=== PATIENT | male | born 1975 | race Caucasian/White ===

== ENCOUNTER 2020-12-12 08:54 | Emergency (ER) | payer SELFPAY ==
--- NOTE | 2020-12-12 10:48 | RAD REPORT ---
EXAM DESCRIPTION: CT - Thoracic Spine W/o Cont - 12/12/2020 10:02 am CLINICAL HISTORY: Back pain, fall COMPARISON: None. TECHNIQUE: Axial 3 mm thick images of the thoracic spine were obtained with sagittal and coronal rec onstruction images generated and reviewed. All CT scans are performed using dose optimization technique as appropriate and may include automated exposure control or mA/KV adjustment according to patient size. FINDINGS: Mild concavity to the superior endplate of T4 and T5 with overall body height preserved. T here is slight wedging of the T6 body with posterior wall height preserved. Approximately 20% wedging of the T9 body is seen. No associated fracture lines or acute abnormality seen. These are believed b e all chronic changes. No abnormal disc space narrowing or endplate spurring changes seen. No paraspinal mass or hematoma. Central canal detail is inherently limited on CT imaging. No gross evidence for disc herniation. IMPRESSION: Patient shows multiple vertebrae that show wedging or loss of height. There are no assoc iated acute fracture lines or pathologic bone changes. The thoracic vertebral changes are suspected to be chronic but could potentially be sources for pain. Follow-up outpatient MR imaging could be performed to exclude any active marrow process. Central canal detail is inherently limited. No gross abnormality seen.
--- NOTE | 2020-12-12 11:19 | ER ---
Nurse's Notes [facility] Name: Raul Baldwin Age: 45 yrs Sex: Male : 1975 Arrival Date: 12/12/2020 Time: 09:01 Bed 18 Private MD: Diagnosis: Wedge compression fracture of unspecified thoracic vertebra Presentation: 12/12 09:05 Chief complaint: Patient states: upper and middle back pain for 3-4 days. Reports rb3 falling a year ago. Coronavirus screen: At this time, the client does not indicate any symptoms associated with coronavirus-19. Ebola Screen: Patient denies travel to an Ebola-affected area in the 21 days before illness onset. Initial Sepsis Screen: Does the patient meet any 2 criteria? No. Patient's initial sepsis screen is negative. Does the patient have a suspected source of infection? No. Patient's initial sepsis screen is negative. Risk Assessment: Do you want to hurt yourself or someone else? Patient reports no desire to harm self or others. Onset of symptoms was December 08, 2020. 09:05 Method Of Arrival: Ambulatory rb3 09:05 Acuity: DAVIDA 3 rb3 Triage Assessment: 09:05 General: Appears in no apparent distress. Behavior is calm, cooperative. Pain: rb3 Complains of pain in upper and middle back Pain currently is 8 out of 10 on a pain scale. Quality of pain is described as tingling. Neuro: Level of Consciousness is awake, alert, obeys commands, Oriented to person, place, time, situation. Neuro: Reports Tingling in his feet and back. Cardiovascular: Patient's skin is warm and dry. Respiratory: Airway is patent Respiratory effort is even, unlabored, Respiratory pattern is regular, symmetrical. Respiratory: Reports cough that is reports a smoker's cough. GI: No signs and/or symptoms were reported involving the gastrointestinal system. : No signs and/or symptoms were reported regarding the genitourinary system. Musculoskeletal: Range of motion: intact in all extremities. Historical: - Allergies: 09:05 No Known Allergies; rb3 - Home Meds: 09:05 None [Active]; rb3 - PMHx: 09:05 None; rb3 - PSHx: 09:05 None; rb3 - Immunization history:: Adult Immunizations unknown. - Social history:: Smoking status: Patient reports the use of cigarette tobacco products, smokes one pack cigarettes per day. Screenin:05 Abuse screen: Denies threats or abuse. Nutritional screening: No deficits noted. rb3 Tuberculosis screening: No symptoms or risk factors identified. Fall Risk None identified. Assessment: 09:05 General: See triage assessment. rb3 10:06 Reassessment: Pt. in radiology. rb3 10:50 Reassessment: Patient appears in no apparent distress at this time. Patient and/or rb3 family updated on plan of care and expected duration. Pain level reassessed. Patient is alert, oriented x 3, equal unlabored respirations, skin warm/dry/pink. 10:56 Reassessment: Pt. went to x-ray. rb3 11:39 Reassessment: Patient appears in no apparent distress at this time. Patient and/or iw family updated on plan of care and expected duration. Pain level reassessed. Patient is alert, oriented x 3, equal unlabored respirations, skin warm/dry/pink. Vital Signs: 09:05 BP 116 / 72; Pulse 87; Resp 17; Temp 98.7; Pulse Ox 96% ; Weight 56.7 kg; Height 5 ft. rb3 5 in. (165.10 cm); Pain 8/10; 10:06 rb3 10:30 BP 121 / 74; Pulse 82; Resp 18; Pulse Ox 98% ; rb3 10:54 rb3 09:05 Body Mass Index 20.80 (56.70 kg, 165.10 cm) rb3 10:06 pt. is in radiology rb3 10:54 Pt. went to x-ray rb3 ED Course: 09:01 Patient arrived in ED. am2 09:05 Noelle Nguyen, RN is Primary Nurse. rb3 09:05 Sudeep Nesbitt PA is PHCP. jr8 09:05 Barber Olsen MD is Attending Physician. jr8 09:05 Arm band placed on right wrist. rb3 09:05 Patient has correct armband on for positive identification. Bed in low position. Call rb3 light in reach. Side rails up X 1. Pulse ox on. NIBP on. 09:15 Triage completed. rb3 10:02 CT Thoracic Spine Wo Cont In Process Unspecified. EDMS 10:57 XRAY Chest Pa And Lat (2 Views) In Process Unspecified. EDMS 11:18 Yohannes Cuba MD is Referral Physician. jr8 11:39 No provider procedures requiring assistance completed. Patient did not have IV access iw during this emergency room visit. Administered Medications: No medications were administered Outcome: 11:18 Discharge ordered by . jr8 11:39 Discharged to home ambulatory. iw 11:39 Condition: good 11:39 Discharge instructions given to patient, Instructed on discharge instructions, follow up and referral plans. medication usage, Demonstrated understanding of instructions, follow-up care, medications, Prescriptions given X 3. 11:39 Patient left the ED. iw Signatures: Dispatcher [employer] EDMS Dasia Cota, RN RN iw Sudeep Nesbitt PA PA jr8 Aaliyah Saleh am2 Noelle Nguyen, RN RN rb3
--- NOTE | 2020-12-12 11:19 | EDPHYS ---
Physician Documentation [facility] Name: Raul Baldwin Age: 45 yrs Sex: Male : 1975 Arrival Date: 12/12/2020 Time: 09:01 Bed 18 Private MD: ED Physician Barber Olsen HPI: 12/12 10:10 This 45 yrs old Male presents to ER via Ambulatory with complaints of Back jr8 Pain. 10:10 Onset: The symptoms/episode began/occurred acutely, 5 day(s) ago. Associated signs and jr8 symptoms: Pertinent positives: tingling. Modifying factors: The patient symptoms are alleviated by nothing, the patient symptoms are aggravated by movement. Severity of symptoms: At their worst the symptoms were moderate, in the emergency department the symptoms are unchanged. The patient has not experienced similar symptoms in the past. The patient has not recently seen a physician. Patient stated that he injured his upper back about a year ago but had been doing fine since then. About 5 days ago started to have upper back pain with movement that is now constant and is also having lower feet tingling bilaterally . Historical: - Allergies: 09:05 No Known Allergies; rb3 - Home Meds: 09:05 None [Active]; rb3 - PMHx: 09:05 None; rb3 - PSHx: 09:05 None; rb3 - Immunization history:: Adult Immunizations unknown. - Social history:: Smoking status: Patient reports the use of cigarette tobacco products, smokes one pack cigarettes per day. ROS: 10:10 Cardiovascular: Negative for chest pain, palpitations, and edema, Respiratory: Negative jr8 for shortness of breath, cough, wheezing, and pleuritic chest pain, Abdomen/GI: Negative for abdominal pain, nausea, vomiting, diarrhea, and constipation, MS/Extremity: Negative for injury and deformity, Skin: Negative for injury, rash, and discoloration. 10:10 Back: Positive for pain at rest, pain with movement, radiated pain. 10:10 Neuro: Positive for tingling, of the right foot and left foot. 10:10 All other systems are negative. Exam: 10:10 Constitutional: This is a well developed, well nourished patient who is awake, alert, jr8 and in no acute distress. Chest/axilla: Normal chest wall appearance and motion. Nontender with no deformity. No lesions are appreciated. Cardiovascular: Regular rate and rhythm with a normal S1 and S2. No gallops, murmurs, or rubs. Normal PMI, no JVD. No pulse deficits. Respiratory: Lungs have equal breath sounds bilaterally, clear to auscultation and percussion. No rales, rhonchi or wheezes noted. No increased work of breathing, no retractions or nasal flaring. Abdomen/GI: Soft, non-tender, with normal bowel sounds. No distension or tympany. No guarding or rebound. No evidence of tenderness throughout. Skin: Warm, dry with normal turgor. Normal color with no rashes, no lesions, and no evidence of cellulitis. MS/ Extremity: Pulses equal, no cyanosis. Neurovascular intact. Full, normal range of motion. Neuro: Awake and alert, GCS 15, oriented to person, place, time, and situation. Cranial nerves II-XII grossly intact. Motor strength 5/5 in all extremities. Sensory grossly intact. Cerebellar exam normal. Normal gait. 10:10 Neck: Trachea midline, no thyromegaly or masses palpated, and no cervical lymphadenopathy. Supple, full range of motion without nuchal rigidity, or vertebral point tenderness. No Meningismus. 10:10 Back: ROM is painful, with flexion, with extension, normal spinal alignment noted, CVA tenderness, is absent, vertebral tenderness, is appreciated at T3, muscle spasm, is appreciated in the left scapular area and right scapular area. Vital Signs: 09:05 BP 116 / 72; Pulse 87; Resp 17; Temp 98.7; Pulse Ox 96% ; Weight 56.7 kg; Height 5 ft. rb3 5 in. (165.10 cm); Pain 8/10; 10:06 rb3 10:30 BP 121 / 74; Pulse 82; Resp 18; Pulse Ox 98% ; rb3 10:54 rb3 09:05 Body Mass Index 20.80 (56.70 kg, 165.10 cm) rb3 10:06 pt. is in radiology rb3 10:54 Pt. went to x-ray rb3 MDM: 09:05 Patient medically screened. [facility] 11:15 Data reviewed: vital signs, nurses notes, radiologic studies, CT scan, plain films. [facility] Data interpreted: Pulse oximetry: on room air is 96 %. Interpretation: normal. Counseling: I had a detailed discussion with the patient and/or guardian regarding: the historical points, exam findings, and any diagnostic results supporting the discharge/admit diagnosis, radiology results, the need for outpatient follow up, a neurosurgeon, to return to the emergency department if symptoms worsen or persist or if there are any questions or concerns that arise at home. ED course: No emergent findings on CT that would necessitate transfer or emergent MRI at this time. Neurologically patient is stable and without weakness or deficit. Will have him f/u with neurosurgery. Close return precautions given . 12/12 09:41 Order name: CT Thoracic Spine Wo Cont; Complete Time: 10:54 jr8 12/12 09:41 Order name: XRAY Chest Pa And Lat (2 Views) jr8 Administered Medications: No medications were administered Disposition: 12/13 07:13 Co-signature as Attending Physician, Barber Olsen MD I agree with the assessment and kdr plan of care. Disposition: 12/12/20 11:18 Discharged to Home. Impression: Wedge compression fracture of unspecified thoracic vertebra. - Condition is Stable. - Discharge Instructions: Vertebral Fracture. - Prescriptions for meloxicam 15 mg Oral tablet - take 1 tablet by ORAL route once daily As needed; 20 tablet. Robaxin 500 mg Oral Tablet - take 2 tablet by ORAL route every 6 hours As needed; 40 tablet. Medrol (Radames) 4 mg Oral Tablets, Dose Pack - take 1 tablet by ORAL route as directed - follow package instructions; 1 packet. - Medication Reconciliation Form, Thank You Letter, Antibiotic Education, Prescription Opioid Use, Work release form form. - Follow up: Yohannes Cuba MD; When: 5 - 6 days; Reason: Recheck today's complaints, Continuance of care, Re-evaluation by your physician. - Problem is new. - Symptoms are unchanged. Signatures: Dispatcher [employer] EDMS Barber Olsen MD MD [facility] Dasia Cota RN RN iw Sudeep Nesbitt PA PA jr8 Noelle Nguyen, RN RN rb3 Corrections: (The following items were deleted from the chart) 12/12 11:39 11:18 12/12/2020 11:18 Discharged to Home. Impression: Wedge compression fracture of iw unspecified thoracic vertebra. Condition is Stable. Forms are Medication Reconciliation Form, Thank You Letter, Antibiotic Education, Prescription Opioid Use. Follow up: Yohannes Cuba; When: 5 - 6 days; Reason: Recheck today's complaints, Continuance of care, Re-evaluation by your physician. Problem is new. Symptoms are unchanged. jr8
--- NOTE | 2020-12-12 11:51 | RAD REPORT ---
EXAM DESCRIPTION: RAD - Chest Pa And Lat (2 Views) - 12/12/2020 11:01 am CLINICAL HISTORY: PAIN COMPARISON: None TECHNIQUE: Frontal and lateral views of the chest were obtained. FINDINGS: The lungs are fibrotic with flattened diaphragm and increased retrosternal space. No failu re, infiltrate or mass identified. Heart size is normal and central vasculature is within normal li mits. No pleural effusion or pneumothorax seen. Bones are osteopenic. Several vertebrae show a slig ht wedge configuration. No lytic or blastic component. No aortic abnormality. IMPRESSION: COPD pattern with no acute cardiopulmonary finding. Osteopenic changes in the spine with several vertebrae showing a slight wedge configuration. No lytic or blastic changes are present. If thoracic or mid back pain symptoms persist, follow-up out patient MRI imaging could be performed to assure no active bone process.
[2020-12-12 11:56] VITALS: BP 116/72; TEMP 98.7; O2SAT 96
== END 2020-12-12 11:39 | disposition home or self-care (01) ==
LOC: ER 08:54
DX: S22.000A Wedge compression fracture of unspecified thoracic vertebra, initial encounter for closed fracture (principal); F17.210 Nicotine dependence, cigarettes, uncomplicated
CPT/HCPCS: 71046; 72128

== ENCOUNTER 2023-01-06 13:57 | Emergency (ER) | payer SELFPAY ==
--- OUTSIDE RECORDS SUMMARY | 2023-01-06 14:00 | XMS REPORT | Continuity of Care Document ---
:1975 Author Organization [facility] t Address [address] [facility] [address] [place] [id number] Care Team Providers Name Role Phone Unavailable Unavailable Unavailable Problems This patient has no known problems. Allergies, Adverse Reactions, Alerts This patient has no known allergies or adverse reactions. Medications This patient has no known medications. Procedures This patient has no known procedures. Encounters Start End Encounter Admission Attending Care Care Encounter Source Date/Time Date/Time Type Type Clinicians Facility Department ID 2022-04-09 2022-04-09 Outpatient [facility] [id number] 09:55:51 09:55:51 [id number] Results This patient has no known results.
--- NOTE | 2023-01-06 15:01 | RAD REPORT ---
EXAM DESCRIPTION: RAD - Chest Single View - 01/06/2023 2:51 pm CLINICAL HISTORY: COUGH COMPARISON: Chest Pa And Lat (2 Views) dated 12/12/2020 FINDINGS: Lines: None. Lungs: No evidence of edema or pneumonia. Pleural: No significant pleural effusions or pneumothorax. Cardiac: The heart size is within normal limits. Mediastinum: Within normal limits. Bones: No acute fractures. Other: None IMPRESSION: No acute cardiopulmonary disease.
[2023-01-06] MEDS ORDERED: NA CHLORIDE 0.9% 1,000 ML ONE (15:07)
[2023-01-06] MEDS ORDERED: NA CHLORIDE 0.9% 2,000 ML ONE (15:34)
[2023-01-06 15:41] LABS: Absolute Lymphocytes (CBC) 1.7 K/uL (0.7-4.9); Hematocrit 41.9 % (39.6-49.0); MCV 93.3 fL (80-100); MPV 7.2 fL (7.6-11.3); RBC Red Blood Cell Count 4.49 M/uL (4.33-5.43)
[2023-01-06 15:42] LABS: ALT/SGPT 32 U/L (16-61); AST/SGOT 17 U/L (15-37); Albumin 3.9 g/dL (3.4-5.0); Alkaline Phosphatase 50 U/L (45-117); BUN Blood Urea Nitrogen 18 mg/dL (7-18); Bicarbonate 29 mEq/L (21-32); Bilirubin Direct 0.1 mg/dL (0-0.2); Bilirubin Indirect, Calculated 0.2 mg/dL (0.2-0.8); Bilirubin Total 0.3 mg/dL (0.2-1.0); Creatine Phosphokinase 158 U/L (39-308); Glomerular Filtration Rate 111 ml/min (=/>90); Glucose Level 90 mg/dL (74-106); Lipase 70 U/L (13-75); Magnesium 2.3 mg/dL (1.6-2.4); NT PRO-BNP 92 pg/mL (<125); Potassium 3.8 mEq/L (3.5-5.1); Protein, Total 7.2 g/dL (6.4-8.2); Sodium Level 139 mEq/L (136-145)
[2023-01-06 15:43] LABS: Troponin High Sensitivity < 3.0 pg/mL (<58.9)
[2023-01-06 15:53] LABS: Specific Gravity 1.022 (1.005-1.030); Urine Bilirubin NEGATIVE (Negative); Urine Blood Negative (Negative); Urine Clarity Clear (Clear); Urine Color Light-Yellow (Yellow); Urine Glucose NEGATIVE (Negative); Urine Protein NEGATIVE (Negative); Urine Urobilinogen Normal (Normal)
--- NOTE | 2023-01-06 15:54 | ER ---
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 Coronavirus screen: Vaccine status: Patient reports being unvaccinated. Client denies travel out of the [place] in the last 14 days. At this time, the client does not indicate any symptoms associated with coronavirus-19. Ebola Screen: Patient denies travel to an Ebola-affected area in the 21 days before illness onset. Initial Sepsis Screen: Does the patient meet any 2 criteria? No. Patient's initial sepsis screen is negative. Does the patient have a suspected source of infection? No. Patient's initial sepsis screen is negative. Risk Assessment: Do you want to hurt yourself or someone else? Patient reports no desire to harm self or others. Onset of symptoms was December 24, 2022. 14:08 Method Of Arrival: Ambulatory ll1 14:08 Acuity: DAVIDA 3 ll1 Triage Assessment: 14:09 General: Appears uncomfortable, Behavior is calm, cooperative, appropriate for age. ll1 General: Reports feeling ill for fatigue for dehydration. Pain: Complains of pain in body Quality of pain is described as crampy. Neuro: Reports dizziness, weakness. GI: Reports cramping. 14:09 Neuro: Reports headache. ll1 Historical: - Allergies: 14:06 No Known Allergies; ll1 - PMHx: 14:06 T4-T5 FX; ll1 - PSHx: 14:06 None; ll1 - Immunization history:: Client reports having NOT received the Covid vaccine. - Social history:: Smoking status: Patient reports the use of cigarette tobacco products, smokes one pack cigarettes per day. Screenin:56 [facility] ED Fall Risk Assessment (Adult) History of falling in the last 3 months, nj1 including since admission No falls in past 3 months (0 pts) Confusion or Disorientation No (0 pts) Intoxicated or Sedated No (0 pts) Impaired Gait No (0 pts) Mobility Assist Device Used No (0 pt) Altered Elimination No (0 pt) Score/Fall Risk Level 0 - 2 = Low Risk Oriented to surroundings, Maintained a safe environment, Hourly rounding (assess needs \T\ fall precautionary measures) done. Abuse screen: Denies threats or abuse. Denies injuries from another. Nutritional screening: No deficits noted. Tuberculosis screening: No symptoms or risk factors identified. Assessment: 14:40 General: Appears in no apparent distress. comfortable, Behavior is calm, cooperative, nj1 appropriate for age. 14:40 Neuro: Level of Consciousness is awake, alert, obeys commands, Oriented to person, nj1 place, time, situation. Cardiovascular: Patient's skin is warm and dry. Respiratory: Airway is patent Respiratory effort is even, unlabored. 14:40 Pain: Complains of pain in head Pain currently is 3 out of 10 on a pain scale. nj1 15:38 Reassessment: Patient appears in no apparent distress at this time. Patient and/or nj1 family updated on plan of care and expected duration. Pain level reassessed. Patient is alert, oriented x 3, equal unlabored respirations, skin warm/dry/pink. Patient denies pain at this time. 16:22 Reassessment: Patient appears in no apparent distress at this time. Patient and/or nj1 family updated on plan of care and expected duration. Pain level reassessed. Patient is alert, oriented x 3, equal unlabored respirations, skin warm/dry/pink. IVF infusing Patient denies pain at this time. Patient states feeling better. 17:40 Reassessment: Patient appears in no apparent distress at this time. Patient and/or nj1 family updated on plan of care and expected duration. Pain level reassessed. Patient is alert, oriented x 3, equal unlabored respirations, skin warm/dry/pink. Patient denies pain at this time. Patient states feeling better. Vital Signs: 14:08 BP 124 / 82; Pulse 75; Resp 17; Temp 98.3; Pulse Ox 99% ; Weight 54.43 kg; Height 5 ft. ll1 7 in. ; Pain 3/10; 16:22 BP 125 / 89; Pulse 62; Resp 17; Pulse Ox 100% ; nj1 17:29 BP 117 / 76; Pulse 56; Resp 17; Pulse Ox 99% on R/A; nj1 14:08 Body Mass Index 18.79 (54.43 kg, 170.18 cm) ll1 14:08 Pain Scale: Adult 1 ED Course: 14:01 Patient arrived in ED. im 14:06 Arm band placed on Patient placed in an exam room, on a stretcher. ll1 14:09 Triage completed. ll1 14:13 Yanick Short MD is Attending Physician. [facility] 14:40 Siomara Burgos RN is Primary Nurse. nj1 14:40 Patient has correct armband on for positive identification. Bed in low position. Call nj1 light in reach. 14:40 Provided Education on: Fall precautions. nj1 14:52 XRAY Chest (1 view) In Process Unspecified. EDMS 15:04 Inserted saline lock: 20 gauge in right antecubital area, using aseptic technique. hb Blood collected. 17:40 No provider procedures requiring assistance completed. nj1 17:40 IV discontinued, intact, bleeding controlled. nj1 Administered Medications: 15:11 Drug: NS 0.9% IV 1000 ml Route: IV; Rate: 1 bolus; Site: right antecubital; hb 16:45 Follow up: Response: No adverse reaction; IV Status: Completed infusion; IV Intake: nj1 1000ml 15:37 Drug: NS 0.9% IV 1000 ml Route: IV; Rate: 1 bolus; Site: right antecubital; nj1 17:40 Follow up: Response: No adverse reaction; IV Status: Completed infusion; IV Intake: nj1 1000ml 16:45 Drug: NS 0.9% IV 1000 ml Route: IV; Rate: 1 bolus; Site: right antecubital; nj1 17:40 Follow up: Response: No adverse reaction; IV Status: Completed infusion; IV Intake: nj1 1000ml Medication: 17:40 VIS not applicable for this client. nj1 Intake: 16:45 IV: 1000ml; Total: 1000ml. nj1 17:40 IV: 1000ml; Total: 2000ml. nj1 17:40 IV: 1000ml; Total: 3000ml. nj1 Outcome: 15:53 Discharge ordered by . kelvin 17:40 Discharged to home ambulatory. nj1 17:40 Condition: stable 17:40 Discharge instructions given to patient, Instructed on discharge instructions, follow up and referral plans. Demonstrated understanding of instructions, follow-up care. 17:54 Patient left the ED. nj1 Signatures: Dispatcher [employer] EDYanick Holloway MD MD cha Baxter, Heather, RN Debbie Inman RN RN [facility] Siomara Burgos RN RN nj1 Yue Treviño Corrections: (The following items were deleted from the chart) 14:57 14:40 Respiratory: Airway is patent Respiratory effort is even, unlabored, [place] [id number] 19:24 14:09 General: Reports feeling ill for fatigue for dehydration [place] [id number]
--- NOTE | 2023-01-06 15:54 | EDPHYS ---
Physician Documentation [facility] Name: Raul Baldwin Age: 47 yrs Sex: Male : 1975 Arrival Date: 01/06/2023 Time: 13:57 Bed 19 Private MD: ED Physician Yanick Short HPI: 01/06 15:24 This 47 yrs old Male presents to ER via Ambulatory with complaints of kelvin dehydration. 15:24 OVER HEATED, AC MAN. Onset: The symptoms/episode began/occurred 3 day(s) ago. Severity kelvin of symptoms: At their worst the symptoms were moderate in the emergency department the symptoms are unchanged. The patient has experienced similar episodes in the past, a few times. Historical: - Allergies: 14:06 No Known Allergies; ll1 - PMHx: 14:06 T4-T5 FX; ll1 - PSHx: 14:06 None; ll1 - Immunization history:: Client reports having NOT received the Covid vaccine. - Social history:: Smoking status: Patient reports the use of cigarette tobacco products, smokes one pack cigarettes per day. ROS: 15:30 Constitutional: Negative for fever, chills, and weight loss, Eyes: Negative for injury, kelvin pain, redness, and discharge, ENT: Negative for injury, pain, and discharge, Neck: Negative for injury, pain, and swelling, Cardiovascular: Negative for chest pain, palpitations, and edema, Respiratory: Negative for shortness of breath, cough, wheezing, and pleuritic chest pain, Abdomen/GI: Negative for abdominal pain, nausea, vomiting, diarrhea, and constipation, Back: Negative for injury and pain, : Negative for injury, bleeding, discharge, and swelling, MS/Extremity: Negative for injury and deformity, Skin: Negative for injury, rash, and discoloration, Neuro: Negative for headache, weakness, numbness, tingling, and seizure, Psych: Negative for depression, anxiety, suicide ideation, homicidal ideation, and hallucinations, Allergy/Immunology: Negative for hives, rash, and allergies, Endocrine: Negative for neck swelling, polydipsia, polyuria, polyphagia, and marked weight changes, Hematologic/Lymphatic: Negative for swollen nodes, abnormal bleeding, and unusual bruising. Exam: 15:31 Constitutional: This is a well developed, well nourished patient who is awake, alert, kelvin and in no acute distress. Head/Face: Normocephalic, atraumatic. Eyes: Pupils equal round and reactive to light, extra-ocular motions intact. Lids and lashes normal. Conjunctiva and sclera are non-icteric and not injected. Cornea within normal limits. Periorbital areas with no swelling, redness, or edema. ENT: Nares patent. No nasal discharge, no septal abnormalities noted. Tympanic membranes are normal and external auditory canals are clear. Oropharynx with no redness, swelling, or masses, exudates, or evidence of obstruction, uvula midline. Mucous membranes moist. Neck: Trachea midline, no thyromegaly or masses palpated, and no cervical lymphadenopathy. Supple, full range of motion without nuchal rigidity, or vertebral point tenderness. No Meningismus. Chest/axilla: Normal chest wall appearance and motion. Nontender with no deformity. No lesions are appreciated. Cardiovascular: Regular rate and rhythm with a normal S1 and S2. No gallops, murmurs, or rubs. Normal PMI, no JVD. No pulse deficits. Respiratory: Lungs have equal breath sounds bilaterally, clear to auscultation and percussion. No rales, rhonchi or wheezes noted. No increased work of breathing, no retractions or nasal flaring. Abdomen/GI: Soft, non-tender, with normal bowel sounds. No distension or tympany. No guarding or rebound. No evidence of tenderness throughout. Back: No spinal tenderness. No costovertebral tenderness. Full range of motion. Male : Normal genitalia with no discharge or lesions. Skin: Warm, dry with normal turgor. Normal color with no rashes, no lesions, and no evidence of cellulitis. MS/ Extremity: Pulses equal, no cyanosis. Neurovascular intact. Full, normal range of motion. Neuro: Awake and alert, GCS 15, oriented to person, place, time, and situation. Cranial nerves II-XII grossly intact. Motor strength 5/5 in all extremities. Sensory grossly intact. Cerebellar exam normal. Normal gait. Psych: Awake, alert, with orientation to person, place and time. Behavior, mood, and affect are within normal limits. 15:54 ECG was reviewed by the Attending Physician. [facility] Vital Signs: 14:08 BP 124 / 82; Pulse 75; Resp 17; Temp 98.3; Pulse Ox 99% ; Weight 54.43 kg; Height 5 ft. ll1 7 in. ; Pain 3/10; 16:22 BP 125 / 89; Pulse 62; Resp 17; Pulse Ox 100% ; nj1 17:29 BP 117 / 76; Pulse 56; Resp 17; Pulse Ox 99% on R/A; nj1 14:08 Body Mass Index 18.79 (54.43 kg, 170.18 cm) ll1 14:08 Pain Scale: Adult ll1 MDM: 14:13 Patient medically screened. [facility] 15:31 Data reviewed: vital signs, nurses notes, lab test result(s), EKG, radiologic studies. [facility] Consideration of Admission/Observation Escalation of care including admission/observation considered. I considered the following discharge prescriptions or medication management in the emergency department Medications were administered in the Emergency Department. See MAR. Test considered but Not performed: Ultrasound NO RENAL USG. Care significantly affected by the following chronic conditions: NONE. Counseling: I had a detailed discussion with the patient and/or guardian regarding: the historical points, exam findings, and any diagnostic results supporting the discharge/admit diagnosis, lab results, radiology results, the need for outpatient follow up, for definitive care, a family practitioner. 01/06 14:15 Order name: Basic Metabolic Panel; Complete Time: 15:53 [facility] 01/06 14:15 Order name: CBC with Diff; Complete Time: 15:53 [facility] 01/06 14:15 Order name: LFT's; Complete Time: 15:53 [facility] 01/06 14:15 Order name: Magnesium; Complete Time: 15:53 [facility] 01/06 14:15 Order name: NT PRO-BNP; Complete Time: 15:53 [facility] 01/06 14:15 Order name: PT-INR [facility] 01/06 14:15 Order name: Troponin HS; Complete Time: 15:53 [facility] 01/06 14:15 Order name: Lipase; Complete Time: 15:53 [facility] 01/06 14:15 Order name: CPK; Complete Time: 15:53 [facility] 01/06 14:15 Order name: Urinalysis w/ reflexes kelvin 01/06 14:15 Order name: XRAY Chest (1 view); Complete Time: 15:53 [facility] 01/06 14:15 Order name: EKG; Complete Time: 14:15 [facility] 01/06 14:15 Order name: Cardiac monitoring; Complete Time: 15:33 [facility] 01/06 14:15 Order name: EKG - Nurse/Tech; Complete Time: 15:33 [facility] 01/06 14:15 Order name: IV Saline Lock; Complete Time: 15:33 [facility] 01/06 14:15 Order name: Labs collected and sent; Complete Time: 15:33 [facility] 01/06 14:15 Order name: O2 Per Protocol; Complete Time: 15:33 [facility] 01/06 14:15 Order name: O2 Sat Monitoring; Complete Time: 15:33 [facility] EC:54 Rate is 52 beats/min. Rhythm is regular. QRS [place] is Normal. [place] interval is normal. QRS kelvin interval is normal. QT interval is normal. No Q waves. T waves are Normal. No ST changes noted. Clinical impression: Sinus bradycardia. Interpreted by me. Reviewed by me. Administered Medications: 15:11 Drug: NS 0.9% IV 1000 ml Route: IV; Rate: 1 bolus; Site: right antecubital; hb 16:45 Follow up: Response: No adverse reaction; IV Status: Completed infusion; IV Intake: nj1 1000ml 15:37 Drug: NS 0.9% IV 1000 ml Route: IV; Rate: 1 bolus; Site: right antecubital; nj1 17:40 Follow up: Response: No adverse reaction; IV Status: Completed infusion; IV Intake: nj1 1000ml 16:45 Drug: NS 0.9% IV 1000 ml Route: IV; Rate: 1 bolus; Site: right antecubital; nj1 17:40 Follow up: Response: No adverse reaction; IV Status: Completed infusion; IV Intake: nj1 1000ml Disposition Summary: 01/06/23 15:53 Discharge Ordered Location: Home kelvin Problem: new kelvin Symptoms: have improved kelvin Condition: Stable kelvin Diagnosis - Dehydration kelvin - Heat exhaustion, unspecified kelvin Followup: kelvin - With: Private Physician - When: 2 - 3 days - Reason: Recheck today's complaints, Continuance of care, Re-evaluation by your physician Discharge Instructions: - Discharge Summary Sheet kelvin - Dehydration, Adult kelvin - Near-Syncope, [id number] kelvin - Heat Exhaustion kelvin - Rehydration, Adult kelvin - Preventing Heat Exhaustion, Adult kelvin Forms: - Medication Reconciliation Form kelvin - Thank You Letter kelvin - Antibiotic Education kelvin - Prescription Opioid Use kelvin - Patient Portal [email or web address] kelvin Signatures: Dispatcher [employer] Yanick Thornton MD MD cha Baxter, Heather, RN RN hb Debbie Melton RN RN ll1 Siomara Burgos RN RN nj1
[2023-01-06 18:13] VITALS: TEMP 98.3
[2023-01-06 18:17] VITALS: BP 117/76; O2SAT 99
[2023-01-06 22:26] LABS: Protime INR ND
--- NOTE | 2023-01-07 15:46 | EKG ---
Test Date: 2023-01-06 Test Time: 15:32:06 Medical Massage Therapist: MB MEASUREMENT RESULTS: Intervals: Rate: 52 MD: 194 QRSD: 106 QT: 400 QTc: 372 [place]: P: 63 MD: 194 QRS: 86 T: 73 INTERPRETIVE STATEMENTS: Sinus bradycardia Otherwise normal ECG No previous ECG available for comparison Electronically Signed On 01-07-23 15:44:21 CDT by Jean Paul Johns
== END 2023-01-06 17:54 | disposition home or self-care (01) ==
LOC: ER 13:57
DX: E86.0 Dehydration (principal); T67.5XXA Heat exhaustion, unspecified, initial encounter
CPT/HCPCS: 36415; 71045; 80048; 80076; 81003; 82550; 83690; 83735; 83880; 84484; 85025; 85610; 93005; J7030